=== PATIENT | female | born 1975 | race Caucasian/White ===

== ENCOUNTER → 2016-05-02 | Outpatient (CLI) | payer BC ==
[~2016-05-02] MED LIST: BUSPIRONE HCL7.5 MG PO; CELEXA20 MG PO; CYMBALTA60 MG PO; LOSARTAN POTAS100 MG PO; NAPROSYN500 MG PO; NORVASC10 MG PO; PREDNISONE10 MG PO; PROVENTIL HFA6.7 GM INH; ULTRAM50 MG PO; XANAX0.5 MG PO; ZITHROMAX250 MG PO
== END | disposition short-term general hospital (02) ==
LOC: CLORTH 10:13
DX: Z47.89 Encounter for other orthopedic aftercare (principal); M75.42 Impingement syndrome of left shoulder
CPT/HCPCS: J1030

== ENCOUNTER → 2016-05-30 | Outpatient (CLI) | payer BC | END | disposition short-term general hospital (02) | LOC: CLORTH 11:14 | DX: Z47.89 Encounter for other orthopedic aftercare (principal); M25.511 Pain in right shoulder ==

== ENCOUNTER → 2016-06-27 | Outpatient (CLI) | payer BC | END | disposition short-term general hospital (02) | LOC: CLORTH 10:17 | DX: Z47.89 Encounter for other orthopedic aftercare (principal) ==

== ENCOUNTER → 2016-07-25 | Outpatient (CLI) | payer BC | END | disposition short-term general hospital (02) | LOC: CLORTH 05:03 | DX: Z47.89 Encounter for other orthopedic aftercare (principal) ==

== ENCOUNTER 2016-07-30 12:02 | Emergency (ER) | payer BC ==
[~2016-07-30 12:02] MED LIST changes: -BUSPIRONE HCL7.5 MG PO; -CYMBALTA60 MG PO; -NAPROSYN500 MG PO; -NORVASC10 MG PO; -PROVENTIL HFA6.7 GM INH; -ULTRAM50 MG PO
[2016-07-30] MEDS ORDERED: CYMBALTA60 MG PO (13:00)
[2016-07-30] MEDS ORDERED: NAPROSYN500 MG PO (13:02)
[2016-07-30] MEDS ORDERED: ULTRAM50 MG PO (13:03)
[2016-07-30] MEDS ORDERED: BUSPIRONE HCL7.5 MG PO (13:17)
[2016-07-30] MEDS ORDERED: PREDNISONE10 MG PO (13:26)
[2016-07-30] MEDS ORDERED: NORVASC10 MG PO (13:27)
[2016-07-30] MEDS ORDERED: PROVENTIL HFA6.7 GM INH (13:28)
== END 2016-07-30 14:10 | disposition short-term general hospital (02) ==
LOC: ER 12:02
DX: J45.901 Unspecified asthma with (acute) exacerbation (principal); K21.9 Gastro-esophageal reflux disease without esophagitis
CPT/HCPCS: J2060; J2930